=== PATIENT | female | born 1955 | race Caucasian/White ===

== ENCOUNTER 2023-10-20 15:33 | Emergency (ER) | payer MEDICARE, BC, SELFPAY ==
--- NOTE | ~2023-10-20 | XR_ITS ---
Examination: Right knee and right foot. CLINICAL INDICATION: Fall. COMPARISON: None. TECHNIQUE: Right knee 4 views and right foot 3 views. FINDINGS: Right knee: The tricompartment joint space is maintained with mild anterior superior patellar enthesophyte. No loose bodies or joint effusion seen. No visible acute fracture or dislocation seen. Right foot: There is no visible acute fracture, dislocation or subluxation. The MTP, interphalangeal and intertarsal and tarsometatarsal joint spaces are maintained normal. No acute fracture or dislocation seen. The ankle mortise and subtalar joints are normal. A small calcaneal heel and retrocalcaneal enthesophyte. There is mild proximal dorsal foot soft tissue swelling XR/XR knee RT 3V IMPRESSION: 1. Unremarkable right knee exam except for mild anterior superior patellar enthesophyte. 2. Small calcaneal heel and retrocalcaneal enthesophytes. No visible acute fracture or dislocation right foot. Mild proximal dorsal foot soft tissue swelling.
--- NOTE | ~2023-10-20 | XR_ITS ---
Examination: Right knee and right foot. CLINICAL INDICATION: Fall. COMPARISON: None. TECHNIQUE: Right knee 4 views and right foot 3 views. FINDINGS: Right knee: The tricompartment joint space is maintained with mild anterior superior patellar enthesophyte. No loose bodies or joint effusion seen. No visible acute fracture or dislocation seen. Right foot: There is no visible acute fracture, dislocation or subluxation. The MTP, interphalangeal and intertarsal and tarsometatarsal joint spaces are maintained normal. No acute fracture or dislocation seen. The ankle mortise and subtalar joints are normal. A small calcaneal heel and retrocalcaneal enthesophyte. There is mild proximal dorsal foot soft tissue swelling XR/XR foot RT 2V IMPRESSION: 1. Unremarkable right knee exam except for mild anterior superior patellar enthesophyte. 2. Small calcaneal heel and retrocalcaneal enthesophytes. No visible acute fracture or dislocation right foot. Mild proximal dorsal foot soft tissue swelling.
[2023-10-20 16:17] VITALS: BP 147/60; PULSE 75; RESP 18; TEMP 36.6; O2SAT 98; BMI 28.0
--- NOTE | 2023-10-20 16:19 | ED_ITS ---
HPI - Extremity Injury (Lower) General Chief Complaint: Extremity Injury, Lower Stated Complaint: fell rt foot swollen/hit knee Time Seen by Provider: 10/20/23 17:12 Source: patient and family Mode of arrival: wheelchair Limitations: no limitations History of Present Illness HPI Narrative: 68-year-old female with history of back surgeries, HTN, hypothyroidism here with complaints of mechanical fall with right knee/foot pain. No head strike or loss of consciousness. NO associated weakness, numbness, tingling. Related Data Allergies Allergy/AdvReac Type Severity Reaction Status Date / Time tetracycline Allergy Unknown TONGUE Verified 10/20/23 16:16 SWELLING AND BURNING adhesive Allergy Rash Verified 10/20/23 16:17 hydrochlorothiazide Allergy Unknown Verified 10/20/23 16:17 lisinopril Allergy Cough Verified 10/20/23 16:17 Review of Systems Review of Systems: Yes all other systems are reviewed and are negative Constitutional: Constitutional: Reports no additional constitutional complaints, Denies body ache(s), Denies chills, Denies fever(s), Denies headache(s) and Denies weakness Eyes: Eyes: Reports no additional eye complaints and Denies change in vision ENT: Reports system reviewed and no additional complaints, except as documented, Denies dizziness, Denies headache(s), Denies nasal congestion, De nies nasal discharge and Denies neck pain Cardiovascular: Cardiovascular: Reports no additional cardiovascular complaints, Denies chest pain, Denies leg edema and Denies dyspnea Respiratory: Respiratory: Reports no additional respiratory complaints, Denies cough and Denies dyspnea Gastrointestinal: Gastrointestinal: Reports no additional gastrointestinal complaints, Denies abdominal pain, Denies diarrhea, Denies nausea and Denies vomiting Genitourinary: Genitourinary: Reports no additional female genitourinary complaints and Denies urinary incontinence Musculoskeletal: Musculoskeletal: Reports no additional musculoskeletal complaints, Denies back pain, Reports arthralgias, Reports joint swelling, Denies limited range of motion, Denies neck pain, Denies numbness and Denies tingling Integumentary/Breasts: Skin/Breast: Reports system reviewed and no additional complaints, except as docu and Denies rash Neurologic: Reports system reviewed and no additional complaints, except as documented, Denies Abnormal speech present, Denies dizziness, Denies headache(s), Denies numbness, Denies tingling and Denies weakness PMFSH Past Medical History Attestation statement: The following information was validated with the patient. Source: old records reviewed and nursing notes reviewed Physical Exam Vital Signs: Vital Signs: Last Vital Signs Temp 98 F 10/20/23 16:17 Pulse 75 10/20/23 16:17 Resp 18 10/20/23 16:17 BP 147/60 H 10/20/23 16:17 Pulse Ox 98 10/20/23 16:17 O2 Del Method Room Air 10/20/23 16:17 BMI result Body Mass Index 28.0 Const: General: cooperative, healthy appearing, comfortable and no acute distress Orientation/consciousness: patient oriented x3 Limitations: no limitations HEENT: Head: Yes normal to inspection Ears: hearing grossly normal bilaterally General nose exam: Normal external nose present Face and sinus: Yes normal facial exam Mouth: Normal oral and palatal mucosa present Throat: Yes posterior oropharynx normal Eyes: General: appearance normal, both eyes and all related structures Pupils: Equal, round and reactive pupils present Neck: Neck: Yes normal visual inspection Chest: Chest palpation & inspection: normal inspection of the chest Resp: Effort & Inspection: normal respiratory effort Auscultation: clear to auscultation bilaterally Cardio: Rate: regular rate Rhythm: regular rhythm Peripheral pulses: Peripheral pulses 2+ throughout GI: Inspection: Yes normal to inspection Palpation (GI): Soft to palpation and nontender Auscultation: normal bowel sounds Back/Spine/Pelvis: Thoracic/Lumbar Spine: thoracic and lumbar spine normal to inspection Skin: General skin exam: no rashes or lesions noted Neuro: General: patient oriented x3, no focal motor deficits and normal sensation to monofilament Cranial nerves: Yes Equal, round and reactive pupils present Cognition (Neuro): normal cognition Speech: No Abnormal speech present Gait exam (Neuro): Normal gait present Motor exam (neuro): 5/5 motor strength present throughout Extrem: Other: Pain on palpation to the anterior right knee and the medial joint line. Flexion and extension is intact. No ligamental laxity. There is swelling noted over the right dorsal foot. There are normal DP and PT pulses. No pain on palpation over the ankle with full active and passive range of motion. General: Yes normal to inspection Course Course Course Narrative: This is a rapid medical exam. Deferred additional HPI, ROS, PE to primary provider. 68yo female with history of back surgeries, HTN, hypothyroidism here with complaints of mechanical fall with right knee/foot pain. Will obtain x-rays VSS Medical Decision Making Medical Decision Making MDM Narrative: 68-year-old female with history of back surgeries, HTN, hypothyroidism here with complaints of mechanical fall with right knee/foot pain. No head strike or loss of consciousness. NO associated weakness, numbness, tingling. Pain on palpation to the anterior right knee and the medial joint line. Flexion and extension is intact. No ligamental laxity. There is swelling noted over the right dorsal foot. There are normal DP and PT pulses. No pain on palpation over the ankle with full active and passive range of motion. Will check x-rays Differential Diagnosis Differential Diagnoses: The differential diagnosis associated with the presentation includes Fracture, contusion, sprain, strain Low concern for dislocation, vascular injury Admission/Observation Consideration of admission/observation: Escalation of care including admission/observation considered Low concern for dislocation, vascular injury requiring advanced imaging, urgent orthopedic consultation and or transfer or Independent Interpretation I performed an independent interpretation of an: Plain X-Ray Interpretation: I independently reviewed the x-ray and agree with the radiologist's Radiology Impression Discussion of test interpretation with radiology: I have reviewed the radiologist's reading. Radiologist Impression: Launch?Image [place] [id number] XRay Report Signed Patient: Elisa Acevedo MR#: [id number] : 1955 Acct:[id number] Age/Sex: 68 / F ADM Date: 10/20/23 Loc: .ED Attending Dr: Ordering Physician: Generic ED Physician Date of Service: 10/20/23 Procedure(s): XR foot RT 2V Accession Number(s): [id number] cc: Khadar Caldwell MD; Generic ED Physician~ Examination: Right knee and right foot. CLINICAL INDICATION: Fall. COMPARISON: None. TECHNIQUE: Right knee 4 views and right foot 3 views. FINDINGS: Right knee: The tricompartment joint space is maintained with mild anterior superior patellar enthesophyte. No loose bodies or joint effusion seen. No visible acute fracture or dislocation seen. Right foot: There is no visible acute fracture, dislocation or subluxation. The MTP, interphalangeal and intertarsal and tarsometatarsal joint spaces are maintained normal. No acute fracture or dislocation seen. The ankle mortise and subtalar joints are normal. A small calcaneal heel and retrocalcaneal enthesophyte. There is mild proximal dorsal foot soft tissue swelling XR/XR foot RT 2V IMPRESSION: 1. Unremarkable right knee exam except for mild anterior superior patellar enthesophyte. 2. Small calcaneal heel and retrocalcaneal enthesophytes. No visible acute fracture or dislocation right foot. Mild proximal dorsal foot soft tissue swelling. Tests considered The following testing was considered but not selected: low concern for dislocation, vascular injury requiring advanced imaging Chronic Conditions Patient?s care impacted by: Diabetes Discharge Plan Discharge Clinical Impression: Contusion of foot, right, Contusion of knee, right Patient Disposition: Home, Self-Care Instructions: Contusion in Adults (ED), Foot Contusion (ED) Additional Instructions: Rest, ice, elevation Use the cane for ambulation Apply the Schuyler wrap for discomfort as needed Take motrin or tylenol for pain as needed if able Referrals: Khadar Caldwell MD [Primary Care Provider] - ED Physician,Generic [Physician] - 1 week
== END 2023-10-20 17:25 | disposition home or self-care (01) ==
LOC: HO.ED 17:22
PROVIDERS: Emergency Provider Student in an Organized Health Care Education/Training Program; PCP Internal Medicine
DX: S90.31XA Contusion of right foot, initial encounter (principal); S80.01XA Contusion of right knee, initial encounter; M79.604 Pain in right leg; I10 Essential (primary) hypertension; W01.10XA Fall on same level from slipping, tripping and stumbling with subsequent striking against unspecified object, initial encounter; Y93.9 Activity, unspecified; Y92.9 Unspecified place or not applicable; Y99.8 Other external cause status
CPT/HCPCS: 73562; 73620; 99282; 99283